=== PATIENT | male | born 1995 | race Caucasian/White ===

== ENCOUNTER 2024-11-23 11:24 | Emergency (ER) | payer BC, OTHER ==
[2024-11-23 11:33] VITALS: RESP 16; TEMP 97.7
[2024-11-23] MEDS: DIPH,PERTUS(ACELL)TETVAC-LF 0.5 ML VIAL IM ONE (12:41)
[2024-11-23] MEDS: LIDOCAINE 1% INJ 10MG/ML (20 ML MDV) SQ ONE (12:42)
[2024-11-23] MEDS: KETOROLAC 15 MG/ML 1 ML VIAL IM STA (12:42)
--- NOTE | 2024-11-23 13:07 | XR ---
EXAMINATION TYPE: XR finger LT DATE OF EXAM: 11/23/2024 12:58 PM COMPARISON: None CLINICAL INDICATION: Male, 28 years old with history of Fourth digit soft tissue avulsion; PHH, pain TECHNIQUE: 3 views coned down left fourth finger FINDINGS: Extensive soft tissue injury to the distal aspect of the fourth finger. There is a 6 x 2 mm fragment of bone from the radial margin of the distal phalangeal tuft displaced approximately 3 mm a nd the radial and palmar direction. No other fracture, subluxation, or dislocation seen. IMPRESSION: Extensive soft tissue injury to the distal aspect of the fourth finger. There is a 6 x 2 mm fracture fragment from the radial aspect of the distal phalangeal tuft displaced by 3 mm. [facility], , 11/23/2024 1:05 PM
[2024-11-23] MEDS: TOPICAL SKIN ADHESIVE 1 EACH AMP TOPICAL ONE (13:21)
--- NOTE | 2024-11-23 14:29 | ED ---
Wound/Laceration HPI - General Chief Complaint: Wound/Laceration Stated Complaint: [facility]-Left Hand Injury Time Seen by Provider: 11/23/24 11:37 Source: patient, RN notes reviewed Mode of arrival: ambulatory Limitations: no limitations - History of Present Illness Initial Comments: This is a 28-year-old male with presenting for left fourth digit injury/lac eration (02/02) occurring at 1130 today. Patient states a rake handle broke, stepping back as his finger was inside the broken area of the rake, tearing into a large portion of the pad of his ring finger. Patient denies other injuries or use of blood thinners. States tetanus is not up-to-date. Onset/Timin -: minutes(s) Time: 11:30 Place: work Patient Tetanus UTD: No Context: accidental Associated Symptoms: pain Treatments Prior to Arrival: bandage - Related Data Home Medications Medication Instructions Recorded Confirmed lamoTRIgine [LaMICtal] 25 mg PO DAILY 01/07/14 01/07/14 Previous Rx's Medication Instructions Recorded Cephalexin [Keflex] 500 mg PO Q6HR #20 cap 01/07/14 Cephalexin [Keflex] 500 mg PO Q6HR 1 Days #40 cap 11/23/24 Allergies Allergy/AdvReac Type Severity Reaction Status Date / Time No Known Allergies Allergy Verified 11/23/24 11:33 Review of Systems ROS Statement: Those systems with pertinent positive or pertinent negative responses have been documented in the HPI. ROS Other: All systems not noted in ROS Statement are negative. Past Medical History Past Medical History: Seizure Disorder Additional Past Medical History / Comment(s): LONG QT SYNDROME History of Any Multi-Drug Resistant Organisms: None Reported Past Surgical History: No Surgical Hx Reported Past Psychological History: No Psychological Hx Reported Smoking Status: Never smoker Past Alcohol Use History: None Reported Past Drug Use History: None Reported General Exam Limitations: no limitations General appearance: alert, in no apparent distress Head exam: Present: atraumatic, normocephalic, normal inspection Eye exam: Present: normal appearance, PERRL, EOMI. Absent: scleral icterus, conjunctival injection, periorbital swelling ENT exam: Present: normal exam, mucous membranes moist Neck exam: Present: normal inspection. Absent: tenderness, meningismus, lymphadenopathy Respiratory exam: Present: normal lung sounds bilaterally. Absent: respiratory distress, wheezes, rales, rhonchi, stridor Cardiovascular Exam: Present: regular rate, normal rhythm, normal heart sounds. Absent: systolic murmur, diastolic murmur, rubs, gallop, clicks GI/Abdominal exam: Present: soft, normal bowel sounds. Absent: distended, tenderness, guarding, rebound, rigid Extremities exam: Present: full ROM, normal capillary refill, other (Positive large avulsion of pad of left fourth digit extending to radial aspect of distal finger with some damage to distal corner of nail. Minimal bleeding, no foreign body.). Absent: tenderness, pedal edema, joint swelling, calf tenderness Back exam: Present: normal inspection Neurological exam: Present: alert, oriented X3, CN II-XII intact Psychiatric exam: Present: normal affect, normal mood Skin exam: Present: warm, dry, intact, normal color. Absent: rash Course Vital Signs 11/23/24 11/23/24 11:29 14:49 Temperature 97.7 F Pulse Rate 65 56 L Respiratory 16 16 Rate Blood Pressure 133/84 117/78 O2 Sat by Pulse 99 98 Oximetry Procedures - Laceration Laceration #1 Consent Obtained: verbal consent Indication: laceration Site: other (Left fourth digit) Size (cm): 5 Description: avulsion, irregular Depth: involves muscle layer Anesthetic Used: lidocaine 1% Anesthesia Technique: nerve block Amount (mls): 5 Pre-repair: wound explored, irrigated extensively Type of Sutures: nylon Size of Sutures: 5-0 Number of Sutures: 13 Technique: simple, interrupted, other (Dermabond used near laceration site adjacent to nail where sutures were unable to be placed) Patient Tolerated Procedure: well, no complications Medical Decision Making - Medical Decision Making Was pt. sent in by a medical professional or institution (Dr. PA, TELEPHONE SALES AGENT, urgent care, hospital, or detention...) When possible be specific @ -No Did you speak to anyone other than the patient for history (EMS, parent, family, police, friend...)? What history was obtained from this source @ -No Did you review nursing and triage notes (agree or disagree)? Why? @ -I reviewed and agree with nursing and triage notes Were old charts reviewed (outside hosp., previous admission, EMS record, old EKG, old radiological studies, urgent care reports/EKG's, detention records)? Report findings @ -No old charts were reviewed Differential Diagnosis (chest pain, altered mental status, abdominal pain women, abdominal pain men, vaginal bleeding, weakness, fever, dyspnea, syncope, headache, dizziness, GI bleed, back pain, seizure, CVA, palpatations, mental health, musculoskeletal)? @ -Differential Musculoskeletal Muscular strain, contusion, ligament sprain, fracture, arthritis, septic arthritis, bursitis, cellulitis, muscle spasm, nerve compression, DVT, arterial occlusion, herpes zoster, electrolyte abnormality, tumor.... This is not meant to be in all inclusive list EKG interpreted by me (3pts min.). @ -Not done X-rays interpreted by me (1pt min.). @ -Finger x-ray shows extensive soft tissue injury and a 6 x 2 mm fracture fragment of the radial aspect of the distal phalangeal tuft with [address] interpreted by me (1pt min.). @ -None done U/S interpreted by me (1pt. min.). @ -None done What testing was considered but not performed or refused? (CT, X-rays, U/S, labs)? Why? @ -None What meds were considered but not given or refused? Why? @ -None Did you discuss the management of the patient with other professionals (professionals i.e. , PA, TELEPHONE SALES AGENT, lab, RT, psych nurse, social work manager, subject scientific research, teacher, credit administration officer, child welfare caseworker)? Give summary @ -No Was smoking cessation discussed for >3mins.? @ -No Was critical care preformed (if so, how long)? @ -No Were there social determinants of health that impacted care today? How? (Home lessness, low income, unemployed, alcoholism, drug addiction, transportation, low edu. Level, literacy, decrease access to med. care, senior living, rehab)? @ -No Was there de-escalation of care discussed even if they declined (Discuss DNR or withdrawal of care, Hospice)? DNR status @ -No What co-morbidities impacted this encounter? (DM, HTN, Smoking, COPD, CAD, Cancer, CVA, ARF, Chemo, Hep., AIDS, mental health diagnosis, sleep apnea, morbid obesity)? @ -None Was patient admitted / discharged? Hospital course, mention meds given and route, prescriptions, significant lab abnormalities, going to OR and other pertinent info. @ -Finger x-ray shows extensive soft tissue injury and a 6 x 2 mm fracture fragment of the radial aspect of the distal phalangeal tuft with 3 mm displacement.Patient provided IM Tdap and Toradol. Digital block performed with sufficient anesthesia noted by patient. Wound flushed copiously with normal saline and finger sutured under sterile conditions. Dermabond used on aspect of laceration adjacent to fingernail. Finger bandaged and splinted. Patient provided IM Ancef and Keflex regimen sent to patient's pharmacy. Advised patient to keep injury clean with antibacterial soap and water along with dressing change at least twice daily. Advised follow-up with orthopedics for ongoing management of wound and fracture. Advised alternate Tylenol/Motrin every 4 hours for pain. Discussed patient with Dr. Negrete. Undiagnosed new problem with uncertain prognosis? @ -No Drug Therapy requiring intensive monitoring for toxicity (Heparin, Nitro, Insuli n, Cardizem)? @ -No Were any procedures done? @ -Avulsion sutured under sterile conditions. See procedure note. Diagnosis/symptom? @ -Finger pad avulsion Acute, or Chronic, or Acute on Chronic? @ -Acute Uncomplicated (without systemic symptoms) or Complicated (systemic symptoms)? @ -Uncomplicated Side effects of treatment? @ -No Exacerbation, Progression, or Severe Exacerbation? @ -No Poses a threat to life or bodily function? How? (Chest pain, [place], [place], pneumonia, PE, COPD, DKA, ARF, appy, cholecystitis, CVA, Diverticulitis, Homicidal, Suicidal, threat to staff... and all critical care pts) @ -No Disposition Clinical Impression: Laceration Disposition: HOME SELF-CARE Condition: Good Instructions (If sedation given, give patient instructions): Care For Your Stitches (ED) Additional Instructions: Keep clean with antibacterial soap and water and dressing change at least twice daily. Return to any medical facility in 7-10 days for suture removal. Follow- up with PCP sooner if avulsion appears to be turning pale or black for removal of sutures and nonviable tissue. Follow-up with orthopedics in the next 24-48 hours. Prescriptions: Cephalexin [Keflex] 500 mg PO Q6HR 1 Days #40 cap Is patient prescribed a controlled substance at d/c from ED?: No Referrals: [facility] [NON-STAFF] - 1-2 days None,Stated [Primary Care Provider] - 1-2 days [facility] [Provider Group] - 1-2 days [facility] [Provider Group] - 1-2 days Forms: PH Area PCPs Time of Disposition: 14:29
[2024-11-23] MEDS: ceFAZolin 1,000 MG VIAL (IM USE) IM STA (14:38)
[2024-11-23 14:51] VITALS: BP 117/78; PULSE 56
== END 2024-11-23 14:50 | disposition home or self-care (01) ==
LOC: EC 11:24
DX: S61.315A Laceration without foreign body of left ring finger with damage to nail, initial encounter (principal); Z23 Encounter for immunization; W27.8XXA Contact with other nonpowered hand tool, initial encounter; Y99.0 Civilian activity done for income or pay
CPT/HCPCS: 73140; 90715; 99283; 90471; 96372 ×2; 12002; J0690; J2003; J1885